=== PATIENT | male | born 1980 | race Caucasian/White ===

== ENCOUNTER 2017-01-16 11:09 | Emergency (ER) | payer BC ==
[2017-01-16 11:15] VITALS: BP 137/79; BMI 21.8
[2017-01-16] MEDS ORDERED: NS 1000 ML 1,000 ML ONE ×2 (11:36→13:21)
[2017-01-16] MEDS ORDERED: TORADOL 30 MG VIAL IVP ONE (11:39)
[2017-01-16] MEDS ORDERED: NS 1000 ML 1,000 ML IV ONE ×2 (11:40→13:20)
--- NOTE | 2017-01-16 11:42 | DR.GENAD ---
HPI - PCP Primary Care Physician: shoshana - Complaint/Symptoms Chief Complaint Doctors Comments: Patient admits to muscle aches, headache, vomiting and diarrhea since last night. He denies taking the flu vaccine this year. He admits to fever. Chief Complaint:: patient stated he has had flu like sx since last night. vomited 6 times since last night and had 6 diarrhea bowel movements. - Source History Provided: Patient - Mode of Arrival Mode of Arrival: Ambulatory - Timing Onset of Chief Complaint: 01/15/17 PMH - PMH Past Medical History: No Past Surgical History: Yes Surgical History: Appendectomy - Family History History of Family Medical Conditions: Yes Family Medical History: Hypertension - Social History Does patient currently use any type of tobacco product: Yes Have you used tobacco products in the last 12 months: Yes Type of Tobacco Use: Cigarettes How many years tobacco product used: 10 Does any household member use tobacco: No Alcohol Use: Rarely Do you use any recreational Drugs:: No Lives With: Family Lives Where: Home - infectious screening In the last 2 months have you had wt loss of >10#?: NO Have you had fever, night sweats or hemotysis?: No Have you traveled outside the country in the last 6 months?: No Isolation: Standard ROS - Review of Systems Eyes: No Symptoms Reported ENTM: No Symptoms Reported Respiratoy: No Symptoms Reported Cardiovascular: No Symptoms Reported Gastrointestinal/Abdominal: No Symptoms Reported Genitourinary: No Symptoms Reported Neurological: No Symptoms Reported Musculoskeletal: No Symptoms Reported Integumentary: No Symptoms Reported Hematologic/Lymphatic: No Symptoms Reported Endocrine: No Symptoms Reported Psychiatric: No Symptoms Reported All Other Systems: Reviewed and Negative PE - Vital Signs Vitals: Temperature 97.9 F Pulse Rate [Left Brachial] 91 Pulse Rate 123 Respiratory Rate 18 Blood Pressure 137/79 O2 Sat by Pulse Oximetry 98 - General Limitations: No Limitations General Appearance: Alert - Head Head Exam: Normal Inspection, Atraumatic - Eyes Eye exam: Normal Appearance, PERRL, EOMI - ENT ENT Exam: Normal Exam, Mucous Membranes Dry External Ear Exam: Normal External Inspection TM/Canal Exam: Bilateral Normal Nose Exam: Normal Nose Exam Mouth Exam: Normal Inspection Throat Exam: Normal Inspection - Neck Neck Exam: Normal Inspection, Full ROM - Chest Chest Inspection: Normal Inspection, Symmetric Chest Wall Rise - Respiratory Respiratory Exam: Normal Lung Sounds Bilat Respiratory Exam: Bilateral Clear to Auscultation - Cardiovascular Cardiovascular Exam: Tachycardia - Abdominal Exam Abdominal Exam: Normal Inspection, Normal Bowel Sounds Abdominal Tenderness: negative: RUQ, RLQ, LUQ, LLQ, Epigastrium, Suprapubic, Diffuse, Mild, Moderate, Severe, Other - Extremities Extremities Exam: Normal Inspection, Full ROM. negative: Normal Capillary Refill (prolong) - Back Back Exam: Normal Inspection, Full ROM - Neurologic Neurological Exam: Alert, Oriented X3, CN II-XII Intact - Psychiatric Psychiatric Exam: Normal Affect, Normal Mood - Skin Skin Exam: Warm, Dry, Intact Course - Treatment Treatment: see orders - Reevaluation 1st: Improved - Education/Counseling Educated On: Treatment, Diagnosis, Prognosis ROR - Labs Reviewed Laboratory Results Reviewed?: Yes (hematuria) Result Diagrams: 01/16/17 11:40 01/16/17 11:40 Laboratory: WBC 9.4 X10^3/uL (3.6-10.0) 01/16/17 11:40 RBC 5.21 X10^6/uL (4.7-6.0) 01/16/17 11:40 Hgb 16.0 g/dL (13.5-18.0) 01/16/17 11:40 Hct 46.1 % (42.0-54.0) 01/16/17 11:40 MCV 88.6 fL (80.0-100.0) 01/16/17 11:40 MCH 30.8 pg (27.0-34.0) 01/16/17 11:40 MCHC 34.7 g/dL (33.0-35.0) 01/16/17 11:40 RDW 12.2 % (11.6-16.5) 01/16/17 11:40 Plt Count 175 X10^3/uL (150.0-450.0) 01/16/17 11:40 Plt Count Comment Adequate (ADEQUATE) 01/16/17 11:40 MPV 8.9 fL (7.4-11.0) 01/16/17 11:40 Neut % 92.8 % (42.0-75.0) H 01/16/17 11:40 Lymph % 3.6 % (21.0-51.0) L 01/16/17 11:40 [place] % 3.1 % (0.0-13.0) 01/16/17 11:40 Eos % 0.1 % (0.9-2.9) L 01/16/17 11:40 Baso % 0.4 % (0.2-1.0) 01/16/17 11:40 Neut # 8.7 x10^3/uL (2.2-4.8) H 01/16/17 11:40 Lymph # 0.3 X10^3/uL (1.3-2.9) L 01/16/17 11:40 [place] # 0.3 x10^3/uL (0.3-0.8) 01/16/17 11:40 Eos # 0.0 x10^3/uL (0.0-0.2) 01/16/17 11:40 Baso # 0.0 X10^3/uL (0.0-0.1) 01/16/17 11:40 Absolute Nucleated RBC 0.0 /100WBC 01/16/17 11:40 Total Counted 100 01/16/17 11:40 Neutrophils % (Manual) 95 % (39-76) H 01/16/17 11:40 Lymphocytes % (Manual) 2 % (13-43) L 01/16/17 11:40 Monocytes % (Manual) 3 % (4-9) L 01/16/17 11:40 Plt Morphology Comment Normal (NORMAL) 01/16/17 11:40 RBC Morphology Normal (NORMAL) 01/16/17 11:40 Sodium 139 mmol/L (136-145) 01/16/17 11:40 Corrected Sodium TNP 01/16/17 11:40 Potassium 3.9 mmol/L (3.5-5.1) 01/16/17 11:40 Chloride 102 mmol/L (98-107) 01/16/17 11:40 Carbon Dioxide 27.8 mmol/L (21-32) 01/16/17 11:40 BUN 18 mg/dL (7-18) 01/16/17 11:40 Creatinine 1.05 mg/dL (0.70-1.30) 01/16/17 11:40 Est GFR (MDRD) Af Amer > 60 (>60) 01/16/17 11:40 Est GFR (MDRD) Non-Af > 60 (>60) 01/16/17 11:40 Glucose 103 mg/dL (65-99) H 01/16/17 11:40 Calcium 9.2 mg/dL (8.5-10.1) 01/16/17 11:40 Specimen Type Clean catch urine 01/16/17 12:48 Urine Color Yellow (YELLOW) 01/16/17 12:48 Urine Appearance Clear (CLEAR) 01/16/17 12:48 Urine pH 5.0 (5.0 - 8.0) 01/16/17 12:48 Ur Specific [place] 1.010 (1.000-1.030) 01/16/17 12:48 Urine Protein 1+ (NEGATIVE) 01/16/17 12:48 Urine Glucose (UA) Negative (NEGATIVE) 01/16/17 12:48 Urine Ketones Negative (NEGATIVE) 01/16/17 12:48 Urine Occult Blood 2+ (NEGATIVE) 01/16/17 12:48 Urine Nitrite Negative (NEGATIVE) 01/16/17 12:48 Urine Bilirubin Negative (NEGATIVE) 01/16/17 12:48 Urine Urobilinogen 1+ (NORMAL) 01/16/17 12:48 Ur Leukocyte Esterase 1+ (NEGATIVE) 01/16/17 12:48 Urine RBC Rare /HPF (NEGATIVE) 01/16/17 12:48 Urine WBC Rare /HPF (NEGATIVE) 01/16/17 12:48 Ur Squamous Epith Cells Few /HPF (NEGATIVE) 01/16/17 12:48 Amorphous Sediment Trace /HPF (NEGATIVE) 01/16/17 12:48 Urine Bacteria Negative /HPF (NEGATIVE) 01/16/17 12:48 Urine Mucus Moderate /HPF (NEGATIVE) 01/16/17 12:48 Ur Culture Indicated? No/not indicated 01/16/17 12:48 Influenza Type A (PCR) Negative (NEGATIVE) 01/16/17 11:51 Influenza Type B (PCR) Negative (NEGATIVE) 01/16/17 11:51 Streptococcus Screen Negative (NEGATIVE) 01/16/17 11:51 - XRAY XRAY Interpreted by: Radiologist (CT Abd/pelv:5mm right interpolar nonobstructing renal nehroliths. Punctate left superior renal pole nonobstructing nephrolith. The kidneys are otherwise unremarkable.) - Diagnosis Discharge Problem: Influenza-like illness, Acute gastroenteritis, Nephrolithiasis - Discharge Plan Condition: Stable - Follow ups/Referrals Follow ups/Referrals: CHIRAG CRISOSTOMO [Primary Care Provider] - 3 days - Instructions Instructions: Smoking Cessation, Tips for Success, [id number]
[2017-01-16] MEDS ORDERED: TORADOL 30 MG VIAL ONE (11:45)
[2017-01-16] MEDS ORDERED: LEVSIN/MAALOX/LIDOC VISC PO ONE (11:50)
[2017-01-16] MEDS ORDERED: LEVSIN/MAALOX/LIDOC VISC ONE (11:51)
[2017-01-16 11:52] LABS: BASOPHILS % (AUTO) 0.4 % (0.2-1.0); EOSINOPHILS % (AUTO) 0.1 % (0.9-2.9); HEMATOCRIT 46.1 % (42.0-54.0); LYMPHOCYTES # (AUTO) 0.3 X10^3/uL (1.3-2.9); LYMPHOCYTES % (AUTO) 3.6 % (21.0-51.0); MEAN CORPUSCULAR HEMOGLOBIN 30.8 pg (27.0-34.0); MEAN CORPUSCULAR HGB CONC 34.7 g/dL (33.0-35.0); MEAN CORPUSCULAR VOLUME 88.6 fL (80.0-100.0); MEAN PLATELET VOLUME 8.9 fL (7.4-11.0); MONOCYTES # (AUTO) 0.3 x10^3/uL (0.3-0.8); MONOCYTES % (AUTO) 3.1 % (0.0-13.0); NEUTROPHILS # (AUTO) 8.7 x10^3/uL (2.2-4.8); NEUTROPHILS % (AUTO) 92.8 % (42.0-75.0); PLATELET COUNT 175 X10^3/uL (150.0-450.0); RED BLOOD COUNT 5.21 X10^6/uL (4.7-6.0); RED CELL DISTRIBUTION WIDTH 12.2 % (11.6-16.5); WHITE BLOOD COUNT 9.4 X10^3/uL (3.6-10.0)
[2017-01-16 12:03] LABS: BLOOD UREA NITROGEN 18 mg/dL (7-18); CALCIUM 9.2 mg/dL (8.5-10.1); CARBON DIOXIDE 27.8 mmol/L (21-32); CHLORIDE 102 mmol/L (98-107); CREATININE 1.05 mg/dL (0.70-1.30); SODIUM 139 mmol/L (136-145); eGFR BLACK RACES > 60 (>60); eGFR NON BLACK RACES > 60 (>60)
[2017-01-16 12:18] LABS: PLATELET MORPHOLOGY COMMENT NORMAL (NORMAL)
[2017-01-16 13:30] LABS: BILIRUBIN,URINE NEGATIVE (NEGATIVE); BLOOD/HEMOGLOBIN,URINE 2+ (NEGATIVE); GLUCOSE, URINE NEGATIVE (NEGATIVE); KETONES,URINE NEGATIVE (NEGATIVE); LEUKOCYTE ESTERASE ,URINE 1+ (NEGATIVE); NITRITES,URINE NEGATIVE (NEGATIVE); PROTEIN,URINE 1+ (NEGATIVE); UROBILINOGEN,URINE 1+ (NORMAL)
[2017-01-16 13:37] LABS: APPEARANCE,URINE CLEAR (CLEAR); COLOR,URINE YELLOW (YELLOW)
[2017-01-16 13:38] LABS: AMORPHOUS SEDIMENT,UR TRACE /HPF (NEGATIVE); BACTERIA,URINE NEGATIVE /HPF (NEGATIVE); RBC,URINE RARE /HPF (NEGATIVE); SQUAMOUS EPITHELIAL CELL,UR FEW /HPF (NEGATIVE)
[2017-01-16 13:39] LABS: MUCUS,URINE MODERATE /HPF (NEGATIVE)
--- NOTE | 2017-01-16 14:58 | CT ---
HISTORY: Vomiting and diarrhea. Study: CT abdomen and pelvis without contrast Comparison: None available. Technique: Multiple axial images of the abdomen and pelvis were obtained from the lung bases to the pubic symphy sis without the administration of IV contrast. Dose reduction techniques including Automated Exposur e Control (AEC) and adjustment of mA and kV were utilized. Findings: The visualized portions of the lung bases are unremarkable. 5 mm right interpolar nonobstructing claudia l nephroliths. Punctate left superior renal pole nonobstructing nephrolith. The kidneys are otherwise unremarkable. The liver, spleen, pancreas, and adrenal glands are unremarkable in their CT appearanc e. The gallbladder is unremarkable in its CT appearance. No significant mesenteric lymphadenopathy o r stranding can be observed. No free fluid or free air is seen within the abdomen. Limited evaluati on of the large and small bowel secondary to the lack of oral contrast and collapse. The large and s mall bowel are otherwise unremarkable. The appendix is surgically absent. The urinary bladder is dean sly unremarkable. The bony structures are grossly intact. No aggressive osseous lesions. IMPRESSION: 1. No CT evidence of acute abdominal/pelvic pathology. 2. Other chronic findings as above. Reported By:
== END 2017-01-16 15:15 | disposition home or self-care (01) | DRG 866 ==
LOC: ER 11:09
DX: J10.2 Influenza due to other identified influenza virus with gastrointestinal manifestations (principal); N20.0 Calculus of kidney; K52.89 Other specified noninfective gastroenteritis and colitis
CPT/HCPCS: 36415; 74176; 80048; 81001; 85025; 87070; 87502; 87880; 96365; 96367; 96374; 99282; 99283; A4222; J1885